=== PATIENT | male | born 1985 | race Caucasian/White ===

== ENCOUNTER 2019-06-10 09:58 | Emergency (ER) | payer SELFPAY ==
[~2019-06-10] VITALS: Ht 172.7 cm; Wt 81.6 kg
[~2019-06-10 09:58] MED LIST: ATI1 PO; FOLIC ACID1 MG PO; LEXAPRO10 MG PO; METOPROLOL SUCC25 M1 PO; METOPROLOL TART50 MG PO; THIAMINE-100100 MG PO; TRAZODONE50 M1 PO; ZES10 PO
[2019-06-10 10:06] VITALS: Ht 172.7 cm; Wt 81.6 kg
[2019-06-10 11:05] LABS: BASOPHIL % 0 % (0-2); PLATELET COUNT 107 x10^3mcL (130-400); RED CELL DISTRIBUTION WIDTH 14.6 % (11.5-14.5)
[2019-06-10 11:14] LABS: CALCIUM 7.5 mg/dL (8.5-10.1); CHLORIDE SERUM 99 mmol/L (98-107); CREATININE SERUM 0.8 mg/dL (0.7-1.3); GFR1 > 60 mL/min; GLUCOSE SERUM 117 mg/dL (74-106); POTASSIUM SERUM 3.8 mmol/L (3.5-5.1); SODIUM SERUM 139 mmol/L (136-145)
[2019-06-10 11:20] LABS: ALBUMIN 3.5 g/dL (3.4-5.0); ALKALINE PHOSPHATASE 76 U/L (46-116); ALT/SGPT 84 U/L (16-63); AST/SGOT 93 U/L (15-37); BILIRUBIN TOTAL 0.65 mg/dL (0.20-1.00); TOTAL PROTEIN, SERUM 6.8 g/dL (6.4-8.2)
[2019-06-10 11:20] LABS: UA SPECIFIC GRAVITY <=1.005 (1.005-1.035); microscopic required? YES; urine erythrocyte 1+ (NEGATIVE)
[2019-06-10 14:13] VITALS: BP 151/105
== END 2019-06-10 14:13 | disposition home or self-care (01) ==
LOC: ED 09:58
PROVIDERS: Emergency Medicine
DX: F10.239 Alcohol dependence with withdrawal, unspecified (principal); F41.9 Anxiety disorder, unspecified; I10 Essential (primary) hypertension; Z98.890 Other specified postprocedural states; Y90.8 Blood alcohol level of 240 mg/100 ml or more
CPT/HCPCS: G0480; J2060; J3411; J3475; J3490; J7030; Q0092

== ENCOUNTER 2019-06-15 14:59 | Emergency (ER) | payer SELFPAY ==
[~2019-06-15] VITALS: Ht 172.7 cm; Wt 81.6 kg
[2019-06-15 15:13] VITALS: Ht 172.7 cm; Wt 81.6 kg
[2019-06-15 16:35] LABS: BASOPHIL % 0.6 % (0-2)
[2019-06-15 16:36] LABS: CALCIUM 9.3 mg/dL (8.5-10.1); CARBON DIOXIDE 30.5 mmol/L (21-32); CHLORIDE SERUM 101 mmol/L (98-107); CREATININE SERUM 0.9 mg/dL (0.7-1.3); GFR1 > 60 mL/min; GLUCOSE SERUM 146 mg/dL (74-106); POTASSIUM SERUM 3.1 mmol/L (3.5-5.1); SODIUM SERUM 140 mmol/L (136-145)
[2019-06-15 16:38] LABS: PLATELET COUNT 112 x10^3mcL (130-400)
[2019-06-15 16:40] LABS: ALBUMIN 4.2 g/dL (3.4-5.0); ALKALINE PHOSPHATASE 85 U/L (46-116); ALT/SGPT 201 U/L (16-63); AST/SGOT 191 U/L (15-37); BILIRUBIN TOTAL 0.53 mg/dL (0.20-1.00); MAGNESIUM 2.2 mg/dL (1.8-2.4); TOTAL PROTEIN, SERUM 7.2 g/dL (6.4-8.2)
[2019-06-15 18:22] VITALS: BP 125/76
== END 2019-06-15 18:22 | disposition home or self-care (01) ==
LOC: ED 14:59
PROVIDERS: Emergency Medicine
DX: F10.239 Alcohol dependence with withdrawal, unspecified (principal); E87.6 Hypokalemia; I10 Essential (primary) hypertension; Z98.890 Other specified postprocedural states
CPT/HCPCS: G0480; J2060

== ENCOUNTER 2019-07-02 12:25 | Emergency (ER) | payer MEDICAID ==
[~2019-07-02] VITALS: Ht 172.7 cm; Wt 78.0 kg
[2019-07-02 12:49] VITALS: Ht 172.7 cm; Wt 78.0 kg
[2019-07-02 14:09] LABS: BASOPHIL % 0.6 % (0-2); PLATELET COUNT 214 x10^3mcL (130-400)
[2019-07-02 14:34] LABS: CALCIUM 9.9 mg/dL (8.5-10.1); CARBON DIOXIDE 25.4 mmol/L (21-32); CHLORIDE SERUM 96 mmol/L (98-107); CREATININE SERUM 1.1 mg/dL (0.7-1.3); GFR1 > 60 mL/min; GLUCOSE SERUM 82 mg/dL (74-106); POTASSIUM SERUM 4.4 mmol/L (3.5-5.1); SODIUM SERUM 137 mmol/L (136-145)
[2019-07-02 14:38] LABS: ALBUMIN 4.7 g/dL (3.4-5.0); ALKALINE PHOSPHATASE 87 U/L (46-116); ALT/SGPT 150 U/L (16-63); AST/SGOT 89 U/L (15-37); BILIRUBIN TOTAL 0.91 mg/dL (0.20-1.00)
[2019-07-02 14:39] LABS: TOTAL PROTEIN, SERUM 8.5 g/dL (6.4-8.2)
[2019-07-02 17:04] LABS: UA SPECIFIC GRAVITY 1.015 (1.005-1.035); microscopic required? YES; urine erythrocyte TRACE (NEGATIVE)
[2019-07-02 17:23] LABS: AMPHETAMINE QUAL UR NONE DETECTED (See below)
[2019-07-02 17:50] VITALS: BP 140/85
== END 2019-07-02 18:22 | disposition home or self-care (01) ==
LOC: ED 12:25
PROVIDERS: Emergency Medicine
DX: F10.239 Alcohol dependence with withdrawal, unspecified (principal); F41.9 Anxiety disorder, unspecified; I10 Essential (primary) hypertension
CPT/HCPCS: G0480; J2060; J3490; J7030

== ENCOUNTER 2019-07-27 05:07 | Emergency (ER) | payer MEDICAID ==
[~2019-07-27] VITALS: Ht 172.7 cm; Wt 82.6 kg
[2019-07-27 05:11] VITALS: Ht 172.7 cm; Wt 82.6 kg
[2019-07-27 05:22] VITALS: BP 139/86
== END 2019-07-27 06:40 | disposition home or self-care (01) ==
LOC: ED 05:07
DX: F10.239 Alcohol dependence with withdrawal, unspecified (principal); I10 Essential (primary) hypertension; F17.210 Nicotine dependence, cigarettes, uncomplicated
CPT/HCPCS: 82962; G0480; J2060

== ENCOUNTER 2019-09-21 03:32 | Inpatient (IN) | payer SELFPAY ==
[~2019-09-21] VITALS: Ht 167.6 cm; Wt 86.2 kg
[2019-09-21 03:41] VITALS: Ht 167.6 cm; Wt 86.2 kg
[2019-09-21 04:48] LABS: CALCIUM 9.1 mg/dL (8.5-10.1); CARBON DIOXIDE 30.8 mmol/L (21-32); CHLORIDE SERUM 102 mmol/L (98-107); GFR1 > 60 mL/min; GLUCOSE SERUM 98 mg/dL (74-106); POTASSIUM SERUM 3.4 mmol/L (3.5-5.1); SODIUM SERUM 140 mmol/L (136-145)
[2019-09-21 04:52] LABS: ALBUMIN 3.7 g/dL (3.4-5.0); ALKALINE PHOSPHATASE 65 U/L (46-116); ALT/SGPT 38 U/L (16-63); AST/SGOT 17 U/L (15-37); BASOPHIL % 0.2 % (0-2); PLATELET COUNT 194 x10^3mcL (130-400); RED CELL DISTRIBUTION WIDTH 14.9 % (11.5-14.5); TOTAL PROTEIN, SERUM 7.3 g/dL (6.4-8.2)
[2019-09-21 09:12] LABS: AMPHETAMINE QUAL UR NONE DETECTED (See below)
[2019-09-22 00:43] VITALS: BP 139/85
[2019-09-22 06:02] VITALS: BP 107/73
[2019-09-22 08:16] VITALS: BP 118/80
== END 2019-09-22 13:40 | disposition left against medical advice (07) | DRG 885 ==
LOC: ED 03:32 → MU 21:17
PROVIDERS: Emergency Medicine; ADMIT Family Medicine; ATTEND Family Medicine
DX: F32.2 Major depressive disorder, single episode, severe without psychotic features (principal); I10 Essential (primary) hypertension; F10.10 Alcohol abuse, uncomplicated; Y90.0 Blood alcohol level of less than 20 mg/100 ml; F41.9 Anxiety disorder, unspecified; Z59.0 Homelessness; Z79.899 Other long term (current) drug therapy
CPT/HCPCS: G0378; G0480

== ENCOUNTER → 2019-12-06 | Emergency (ER) | payer MEDICAID ==
[~2019-12-06] VITALS: Ht 170.2 cm; Wt 81.6 kg
[~2019-12-06] MED LIST changes: +SEROQUEL300 MG
[2019-12-06 09:18] VITALS: Ht 170.2 cm; Wt 81.6 kg
[2019-12-06 09:55] LABS: CALCIUM 8.7 mg/dL (8.5-10.1); CARBON DIOXIDE 27.7 mmol/L (21-32); CHLORIDE SERUM 98 mmol/L (98-107); GFR1 > 60 mL/min; GLUCOSE SERUM 105 mg/dL (74-106); POTASSIUM SERUM 3.3 mmol/L (3.5-5.1); SODIUM SERUM 138 mmol/L (136-145)
[2019-12-06 10:00] LABS: BASOPHIL % 0.6 % (0-2); PLATELET COUNT 161 x10^3mcL (130-400)
[2019-12-06 10:01] LABS: RED CELL DISTRIBUTION WIDTH 16.5 % (11.5-14.5)
[2019-12-06 10:24] LABS: ALBUMIN 4.1 g/dL (3.4-5.0); ALKALINE PHOSPHATASE 81 U/L (46-116); ALT/SGPT 153 U/L (16-63); AST/SGOT 126 U/L (15-37); BILIRUBIN TOTAL 0.6 mg/dL (0.20-1.00); TOTAL PROTEIN, SERUM 7.9 g/dL (6.4-8.2)
[2019-12-06 11:49] LABS: AMPHETAMINE QUAL UR NONE DETECTED (See below)
[2019-12-09 19:11] VITALS: BP 142/77
== END ==
LOC: ED 09:17
PROVIDERS: Emergency Medicine
DX: F10.129 Alcohol abuse with intoxication, unspecified (principal); R45.851 Suicidal ideations; F32.9 Major depressive disorder, single episode, unspecified; Z20.828 Contact with and (suspected) exposure to other viral communicable diseases
CPT/HCPCS: G0480; J7030; U0003-CS